=== PATIENT | female | born 1945 | race Two or more races ===

== ENCOUNTER 2017-09-13 13:49 | Emergency (ER) | payer OTHER ==
[2017-09-13 13:58] VITALS: BP 143/81; PULSE 89; TEMP 98; BMI 24.1
[2017-09-13] MEDS ORDERED: KETOROLAC TROMETHAMINE 30 MG/1 ML VIAL IM ONE (14:26)
[2017-09-13] MEDS ORDERED: KETOROLAC TROMETHAMINE 30 MG/1 ML VIAL ONE (14:28)
--- NOTE | 2017-09-13 14:33 | PDOC ---
History of Present Illness - General Chief Complaint: Pain Stated Complaint: BACK PAIN Time Seen by Provider: 09/13/17 14:11 History Source: Patient Exam Limitations: No Limitations - History of Present Illness Initial Comments: 09/13/17 14:28 This is a 9-year-old woman without significant past medical history of presents emergency Department with right flank pain for one week. Patient states the pain came on suddenly while at rest approximately one week ago. She describes the pain as sharp aching pain with rating 10/10. Patient has not tried taking any [id number] medications or sought out medical care regarding this pain. Patient ambulated into treatment area with steady gait without difficulty. She denies any dysuria, fevers, nausea, vomiting, diarrhea or constipation. Patient does endorse urinary urgency. 09/13/17 14:34 Past History - Past Medical History Allergies/Adverse Reactions: Allergies Allergy/AdvReac Type Severity Reaction Status Date / Time No Known Allergies Allergy Verified 09/13/17 13:58 Home Medications: Ambulatory Orders Aspirin [Aspirin EC] 81 mg PO ASDIR 09/13/17 COPD: No Other medical history: NONE - Suicide/Smoking/Psychosocial Hx Smoking History: Never smoked Hx Alcohol Use: No Drug/Substance Use Hx: No Substance Use Type: None Review of Systems - Review of Systems Able to Perform ROS?: Yes Is the patient limited Serbian proficient: Yes Constitutional: No: Symptoms Reported HEENTM: No: Symptoms Reported Respiratory: No: Symptoms reported Cardiac (ROS): No: Symptoms Reported ABD/GI: No: Symptoms Reported : Yes: See HPI Musculoskeletal: Yes: See HPI Integumentary: No: Symptoms Reported Neurological: No: Symptoms reported *Physical Exam - Vital Signs Last Vital Signs Temp Pulse Resp BP Pulse Ox 98.0 F 89 20 143/81 98 09/13/17 13:54 09/13/17 13:54 09/13/17 13:54 09/13/17 13:54 09/13/17 13:54 - Physical Exam General Appearance: Yes: Appropriately Dressed. No: Apparent Distress HEENT: positive: Normal ENT Inspection Neck: positive: Trachea midline, Supple Respiratory/Chest: positive: Lungs Clear, Normal Breath Sounds. negative: Respiratory Distress, Accessory Muscle Use Cardiovascular: positive: Regular Rhythm, Regular Rate. negative: Edema, Murmur Gastrointestinal/Abdominal: positive: Normal Bowel Sounds, Soft. negative: Tender Musculoskeletal: positive: Normal Inspection, CVA Tenderness (R), Other (able to perform straight leg raises without difficulty). negative: Decreased Range of Motion, Muscle Spasm, Vertebral Tenderness Extremity: positive: Normal Inspection, Normal Range of Motion Integumentary: positive: Normal Color, Dry, Warm Neurologic: positive: out and out cigar maker hand II-XII NML intact, Fully Oriented, Alert, Normal Mood/ Affect, Normal Response, Motor Strength 01/13 ED Treatment Course - LABORATORY CBC & Chemistry Diagram: 09/13/17 14:40 09/13/17 14:40 - RADIOLOGY Radiology Studies Ordered: Category Date Time Status SPIRAL- RENAL-STONE CT [CT] Stat CT Scan 09/13/17 14:26 Ordered Medical Decision Making - Medical Decision Making 09/13/17 14:30 A/P: This is a 9-year-old woman without significant past medical history of presents emergency Department with right flank pain for one week. Patient states the pain came on suddenly while at rest approximately one week ago. She describes the pain as sharp aching pain with rating 10/10. Patient has not tried taking any [id number] medications or sought out medical care regarding this pain. Patient ambulated into treatment area with steady gait without difficulty. She denies any dysuria, hematuria, fevers, nausea, vomiting. Patient does endorse urinary urgency. CVA tenderness noted on the right side. Light palpation to the area does not elicit any tenderness. No muscle spasms are palpable. Palpation over bony structures reveals no deformity or crepitus. Abdomen soft nontender nondistended. Ambulatory with steady gait. Able to fully flex hips passively without any pain. Differential diagnosis includes kidney stone, pyelonephritis, Musculo-skeletal pain I will collect CBC, BMP, UA, urine culture and spiral CT of the abdomen. I will give the patient 30 mg of Toradol IM now. I'll reevaluate the patient after all testing has been completed. 09/13/17 15:57 CT abdomen and pelvis without contrast. INDICATION: Right flank pain. TECHNIQUE : CT of the abdomen and pelvis without oral contrast and without intravenous contrast. COMPARISON: 07/16/2012 CT abdomen/pelvis. FINDINGS: Evaluation of the solid viscera, bowel and vessels is limited without contrast. 1.2 cm linear opacity in the medial right lung base is unchanged to slightly smaller in size from prior, likely reflecting scar. There is also stable linear scarring in the left lateral costophrenic angle. The heart is not enlarged. The liver is normal in size and contour. Nonspecific 9 mm calcification in segment 6 the liver is unchanged, presumably a calcified granuloma. Nodular calcifications in the humera hepatis likely represent calcified lymph nodes and a nonspecific 10 mm calcification overlying the left hepatic lobe are unchanged from prior, likely calcified lymph nodes from prior granulomatous disease. There is cholelithiasis. No CT evidence of acute cholecystitis. The common bile duct is not dilated. The unenhanced pancreas is grossly unremarkable. The spleen is normal in size. There is no mass in the adrenal glands. Normal size kidneys. Nonspecific cortical calcifications within both kidneys are unchanged. There is a 7 mm nonspecific nodular calcification centrally in the right kidney, which is unchanged from prior and appears to be cortical on the prior CT. There are no ureteral calculi. There is no obstructive uropathy. Normal caliber abdominal aorta. There is mild calcific atherosclerosis along the common iliac and internal iliac arteries. No pathologically enlarged retroperitoneal lymph nodes by CT size criteria. There are no dilated loops of large or small bowel to suggest obstruction. There are diverticula scattered along the colon, most prominent in the sigmoid colon, with no evidence of acute diverticulitis. There is a normal-appearing retrocecal appendix. There is no free intraperitoneal air or ascites. There is a small fat-containing left inguinal hernia. The urinary bladder is underdistended, limiting evaluation. The uterus is unremarkable. No pathologically enlarged pelvic sidewall lymph nodes by CT size criteria. No acute fracture in the visualized osseous structures. There are mild degenerative changes in the lumbar spine. IMPRESSION: 1. No obstructive uropathy. No definite urinary tract calculi. Renal cortical calcifications as described above, appear similar to 07/16/2012. 2. Cholelithiasis. No CT evidence of acute cholecystitis. 3. Normal appendix. No evidence of diverticulitis or bowel obstruction. 4. Small fat-containing left inguinal hernia. Reported By: Baldomero Berger DO 09/13/17 1538 All findings discussed with patient. Patient states she feels better after receiving the Toradol. I will discharge the patient home with follow-up with her primary doctor. *DC/Admit/Observation/Transfer Diagnosis at time of Disposition: Musculoskeletal back pain - Discharge Dispostion Disposition: HOME Condition at time of disposition: Stable Admit: No - Referrals Referrals: Karen Hurd [Primary Care Provider] - - Patient Instructions Additional Instructions: Take Naprosyn as needed for pain. Follow manufacturers instructions for appropriate dosage. Keep well-hydrated. Return to emergency department for increased pain, burning when urinating, difficulty urination, fevers, chills, any other concerns. Thank you very much for choosing us to provide your emergent healthcare needs. [place] Naprosyn segn sea necesario para el dolor. Siga las instrucciones del fabricante para la dosificacin apropiada. Mantente chasity hidratado. Regrese al departamento de emergencias para un aumento del dolor, ardor al orinar, dificultad para orinar, fiebre, escalofros, cualquier otra preocupaci n. Muchas alise por elegirnos para brindarle malvin necesidades emergentes de atenci n mdica. - Post Discharge Activity
[2017-09-13 14:54] LABS: BASO % 1.3 % (0-2.0); MCH 28.6 pg (25.7-33.7); MCHC 32.5 g/dl (32.0-36.0); MEAN CELL VOLUME 88.1 fl (80-96); MEAN PLT VOLUME 7.7 fl (7.5-11.1); MONO % 6.8 % (3.8-10.2); NEUT % 56.9 % (42.8-82.8); PLATELET COUNT 319 K/MM3 (134-434); RBC 4.54 M/mm3 (3.60-5.2); RDW 14.4 % (11.6-15.6); URINE APPEARANCE CLEAR; URINE BILIRUBIN NEGATIVE (NEGATIVE); URINE BLOOD NEGATIVE (NEGATIVE); URINE COLOR STRAW; URINE GLUCOSE (UA) NEGATIVE (NEGATIVE); URINE KETONE NEGATIVE (NEGATIVE); URINE LEUK ESTERASE NEGATIVE (NEGATIVE); URINE NITRITE NEGATIVE (NEGATIVE); URINE PROTEIN NEGATIVE (NEGATIVE); URINE UROBILINOGEN NEGATIVE mg/dL (0.2-1.0)
[2017-09-13 15:19] LABS: ANION GAP 11 (8-16); BLOOD UREA NITROGEN 15 mg/dL (7-18); CALCIUM 9.7 mg/dL (8.5-10.1); CHLORIDE 104 mmol/L (98-107); CO2 26 mmol/L (21-32); CREATININE 0.7 mg/dL (0.55-1.02); GLUCOSE,RANDOM 109 mg/dL (74-106); POTASSIUM 3.8 mmol/L (3.5-5.1); SODIUM 141 mmol/L (136-145)
== END 2017-09-13 16:04 | disposition home or self-care (01) ==
LOC: JERFT 13:49
DX: M54.5 Low back pain (principal)
CPT/HCPCS: 36415; 74176; 80048; 81003; 85025; 87086; 99281-25